=== PATIENT | male | born 1960 | race Caucasian/White ===

== ENCOUNTER 2017-01-12 19:21 | Inpatient (IN) | payer MEDICAID ==
[~2017-01-12] VITALS: Ht 182.9 cm; Wt 122.9 kg
[2017-01-13] MEDS ORDERED: ZOLPIDEM TARTRATE 10 MG TABLET PO PRN (03:45)
[2017-01-13 03:49] VITALS: BP 131/87
[2017-01-13 08:06] VITALS: BP 139/79
[2017-01-13 16:03] VITALS: BP 132/70
[2017-01-14 05:46] VITALS: BP 133/68
[2017-01-14 08:35] VITALS: BP 117/69
[2017-01-14 08:37] LABS: BASOPHILS % (AUTO) 0.4 % (0.0-2.0); EOSINOPHILS % (AUTO) 2.1 % (1.0-6.0); HEMATOCRIT 36.7 % (41-53); HEMOGLOBIN 12.3 g/dL (13.5-17.5); LYMPHOCYTES # (AUTO) 1.7 K/uL (1.0-4.8); LYMPHOCYTES % (AUTO) 32.7 % (22.0-44.0); MEAN CORPUSCULAR HEMOGLOBIN 30.1 pg (26.0-34.0); MEAN CORPUSCULAR HGB CONC 33.5 G/dL (31.0-37.0); MEAN CORPUSCULAR VOLUME 90 fL (80-100); MONOCYTES # (AUTO) 0.4 K/uL (0.1-1.0); NEUTROPHILS % (AUTO) 57.8 % (40.0-70.0); PLATELET COUNT (AUTO) 281 K/uL (150-450); RED CELL DISTRIBUTION WIDTH 13.9 % (11.5-14.5); WHITE BLOOD COUNT (AUTO) 5.1 K/uL (4.5-11.0)
[2017-01-14] MEDS: HALOPERIDOL 5 MG TABLET PO SCH ×2 (09:00→17:06)
[2017-01-14] MEDS: BENZTROPINE MESYLATE 0.5 MG TABLET PO SCH ×2 (09:00→17:06)
[2017-01-14 09:41] LABS: ALANINE AMINOTRANSFERASE 22 U/L (12-78); ALBUMIN 3.2 g/dL (3.4-5.0); ANION GAP 9 mmol/L (8-16); ASPARTATE AMINOTRANSFERASE 15 U/L (15-37); BILIRUBIN,TOTAL 0.5 mg/dL (0.1-1.0); CALCIUM, TOTAL 8.8 mg/dL (8.8-10.5); CARBON DIOXIDE 28 mmol/L (22-29); CHLORIDE 103 mmol/L (98-107); CHOL/HDL RATIO 4.4 (4.2-7.3); CREATININE 0.94 mg/dL (0.60-1.30); GLOMERULAR FILTR. RATE CALC > 60 mL/min (>60); POTASSIUM 3.5 mmol/L (3.5-5.1); SODIUM SERUM 140 mmol/L (136-145); TOTAL PROTEIN, SERUM 6.6 g/dL (6.4-8.2); UREA NITROGEN, BLOOD 8 mg/dL (7-18)
[2017-01-14 16:07] VITALS: BP 125/72
[2017-01-15 06:04] VITALS: BP 131/72
[2017-01-15 08:42] VITALS: BP 133/70
[2017-01-15] MEDS: HALOPERIDOL 5 MG TABLET PO SCH ×2 (09:08→16:26)
[2017-01-15] MEDS: BENZTROPINE MESYLATE 0.5 MG TABLET PO SCH ×2 (09:08→16:26)
[2017-01-15] MEDS: LORazepam 2 MG TABLET PO PRN (09:09)
[2017-01-15 16:26] VITALS: BP 134/74
[2017-01-16 05:24] VITALS: BP 120/65
[2017-01-16 08:31] VITALS: BP 110/60
[2017-01-16] MEDS: BENZTROPINE MESYLATE 0.5 MG TABLET PO SCH ×2 (08:50→16:22)
[2017-01-16] MEDS: HALOPERIDOL 5 MG TABLET PO SCH ×2 (08:50→16:22)
[2017-01-16 16:00] VITALS: BP 130/78
[2017-01-17 06:13] VITALS: BP 118/65
[2017-01-17 09:16] VITALS: BP 146/73
[2017-01-17] MEDS: HALOPERIDOL 5 MG TABLET PO SCH ×2 (09:18→16:56)
[2017-01-17] MEDS: BENZTROPINE MESYLATE 0.5 MG TABLET PO SCH ×2 (09:18→16:56)
[2017-01-17 16:00] VITALS: BP 127/78
[2017-01-17] MEDS: LORazepam 2 MG TABLET PO PRN (16:56)
[2017-01-18 06:38] VITALS: BP 145/74
[2017-01-18] MEDS: HALOPERIDOL 5 MG TABLET PO SCH ×2 (09:00→16:44)
[2017-01-18] MEDS: BENZTROPINE MESYLATE 0.5 MG TABLET PO SCH ×2 (09:00→16:44)
[2017-01-18 11:00] VITALS: BP 128/84
[2017-01-18 16:02] VITALS: BP 138/75
[2017-01-18] MEDS ORDERED: HALO5 PO (16:56)
[2017-01-18] MEDS ORDERED: BENZ0.5T6 PO (16:56)
[2017-01-19 08:37] LABS: HEPATITIS Bs ANTIGEN SCREEN P Positive (Negative); HEPATITIS C AB SCREEN 0.1 s/co ratio (0.0-0.9)
[2017-01-19 08:37] LABS: HEPATITIS Bs ANTIGEN SCREEN P Positive (Negative); HEPATITIS C AB SCREEN <0.1 s/co ratio (0.0-0.9)
== END 2017-01-18 20:05 | disposition home or self-care (01) | DRG 750 ==
LOC: EDSTATUS 19:21 → B3A 01-13 01:58 → B2S 01-18 12:41
PROVIDERS: ADMIT Psychiatry & Neurology Child & Adolescent Psychiatry; ATTEND Psychiatry & Neurology Psychiatry
DX: F20.0 Paranoid schizophrenia (principal); D64.9 Anemia, unspecified
CPT/HCPCS: 80074; 82306; 82607; 82746; 83036; 84439; 84443; 86592